=== PATIENT | male | born 1945 | race Two or more races ===

== ENCOUNTER 2025-05-03 21:35 | Inpatient (IN) | payer MEDICARE, OTHER ==
[~2025-05-03] VITALS: Ht 170.2 cm; Wt 65.8 kg
[2025-05-03] MEDS ORDERED: KETOROLAC TROMETHAMINE 15 MG/ML VIAL ONE (23:18)
[2025-05-03] MEDS ORDERED: VANCOMYCIN 1 GM /D5W 250 ML PB IV ONE (23:18)
[2025-05-03] MEDS ORDERED: LORAZEPAM INJ 2 MG/ML VIAL ONE (23:19)
[2025-05-03] MEDS: LORAZEPAM INJ 2 MG/ML VIAL IV ONE (23:20)
[2025-05-03 23:30] LABS: PLATELET COUNT (AUTO) 195 K/uL (150-450); RED BLOOD CELL COUNT(AUTO) 4.91 MIL/uL (4.5-6.0); RED CELL DISTRIBUTION WIDTH 14.8 % (11.5-15.0); WHITE BLOOD COUNT (AUTO) 13.2 K/uL (4.3-11.0)
[2025-05-03] MEDS: IV NS 0.9% 500 ML BAG IV ONE (23:34)
[2025-05-03] MEDS: KETOROLAC TROMETHAMINE 15 MG/ML VIAL IV ONE (23:35)
[2025-05-03] MEDS: VANCOMYCIN 1 GM in IV D5W 250 ML IV ONE (23:35)
[2025-05-03 23:42] LABS: CALCIUM, SERUM 10.1 mg/dL (8.5-10.1); CREATININE 1.7 mg/dL (0.6-1.3); SODIUM SERUM 140.0 mmol/L (136-145); UREA NITROGEN, BLOOD 33.0 mg/dL (7-18)
[2025-05-03 23:45] LABS: LACTIC ACID 1.6 mmol/L (0.4-2.0)
[2025-05-03 23:45] LABS: APPEARANCE,URINE CLEAR (CLEAR); BLOOD, URINE 2+ Ery/uL (NEGATIVE); LEUKOCYTE ESTERASE ,URINE NEGATIVE (NEGATIVE); NITRITE, URINE NEGATIVE (NEGATIVE); UGLUCOSE NEGATIVE (NEGATIVE)
[2025-05-03 23:46] LABS: INR 1.0 (0.91-1.10)
[2025-05-03 23:49] LABS: ASPARTATE AMINOTRANSFERASE 21.0 U/L (15-37); TOTAL PROTEIN, SERUM 8.4 g/dL (6.4-8.2)
[2025-05-04 00:07] LABS: ADD URINE CULTURE YES; SQUAMOUS EPITHELIAL CELL,UR Few /HPF (None Seen)
[2025-05-04] MEDS ORDERED: ENOXAPARIN SODIUM 30 MG/0.3 ML DISP.SYRIN SQ SCH (01:30)
[2025-05-04] MEDS ORDERED: DEXTROSE 50%-WATER 50 ML DISP.SYRIN IV PRN (01:30)
[2025-05-04] MEDS ORDERED: Z GUARD REMEDY 4 OZ OINT TP PRN (01:30)
[2025-05-04] MEDS ORDERED: DOSING PER PHARMACY-VANCOMYCIN IV XX PRN (01:30)
[2025-05-04] MEDS ORDERED: ONDANSETRON HCL/PF 4 MG/2 ML VIAL IVP PRN (01:30)
[2025-05-04] MEDS ORDERED: PIPERACI/TAZO 3.375GM/D5W 50ML PB IV ONE (04:05)
[2025-05-04 04:06] VITALS: BP 136/71; TEMP 97.7; O2SAT 97
[2025-05-04] MEDS: PIPERACILLIN /TAZOBACTAM 3.375 G in IV D5W 50 ML IV ONE (05:44)
[2025-05-04] MEDS: ENOXAPARIN SODIUM 30 MG/0.3 ML DISP.SYRIN SQ SCH (07:04)
[2025-05-04] MEDS: BLOOD SUGAR DIAGNOSTIC 1 EACH STRIP IN SCH (07:22)
[2025-05-04] MEDS: INSULIN REGULAR, HUMAN 100 UNIT/ML 3 ML VIAL SQ PRN (07:22)
[2025-05-04 08:00] VITALS: BP 168/95; TEMP 98.4; O2SAT 94
[2025-05-04] MEDS: VANCOMYCIN 500 MG in IV D5W 100ml IV ONE (09:18)
[2025-05-04] MEDS: PANTOPRAZOLE 40 MG TABLET.DR PO SCH (09:19)
[2025-05-04] MEDS ORDERED: DONE5TAB7 PO (09:21)
[2025-05-04] MEDS ORDERED: MIRT7.5T10 PO (09:21)
[2025-05-04] MEDS: IV NS 0.9% 1,000 ML IV ONE (11:02)
[2025-05-04] MEDS: VANCOMYCIN 1 GM in IV D5W 250ml IV SCH (11:02)
[2025-05-04] MEDS ORDERED: PIPERACILLIN /TAZOBACTAM 3.375 G in IV D5W 50 ML IV SCH (12:00)
[2025-05-04] MEDS: ZOSYN IVPB 2.25 G in IV D5W 50ml IV SCH (12:56)
[2025-05-04] MEDS: ACETAMINOPHEN 325 MG TABLET PO PRN (12:57)
[2025-05-04 13:07] LABS: CALCIUM, SERUM 9.1 mg/dL (8.5-10.1); CREATININE 1.3 mg/dL (0.6-1.3); SODIUM SERUM 139.0 mmol/L (136-145); UREA NITROGEN, BLOOD 27.0 mg/dL (7-18)
[2025-05-04 13:24] LABS: PHOSPHORUS 2.9 mg/dL (2.5-4.9)
[2025-05-04 16:00] VITALS: BP 154/85; TEMP 97.9; O2SAT 92
[2025-05-04 18:32] LABS: CREATININE, URINE 80.2 MG/DL (30.0-125.0); URINE SODIUM, RANDOM 78.0 mmol/l (40-220); URINE TOTAL PROTEIN 19.1 mg/dL (0-11.9)
[2025-05-04 20:00] VITALS: BP 135/86; TEMP 98.4; O2SAT 96
[2025-05-04 20:39] VITALS: BP 135/86; TEMP 98.4; O2SAT 96
[2025-05-04] MEDS: LORAZEPAM 0.5 MG TABLET PO ONE (21:37)
[2025-05-04] MEDS: DONEPEZIL 5 MG TABLET PO SCH (21:37)
[2025-05-04] MEDS: MIRTAZAPINE 15 MG TABLET PO SCH (21:37)
[2025-05-05 08:00] VITALS: BP 140/85; TEMP 97.7; O2SAT 94
[2025-05-05 09:59] LABS: PLATELET COUNT (AUTO) 171 K/uL (150-450); RED BLOOD CELL COUNT(AUTO) 4.17 MIL/uL (4.5-6.0); RED CELL DISTRIBUTION WIDTH 14.0 % (11.5-15.0); WHITE BLOOD COUNT (AUTO) 8.2 K/uL (4.3-11.0)
[2025-05-05 10:15] LABS: CREATINE KINASE, TOTAL 245.0 U/L (39-308)
[2025-05-05 10:18] LABS: ASPARTATE AMINOTRANSFERASE 19.0 U/L (15-37); CALCIUM, SERUM 8.7 mg/dL (8.5-10.1); CREATININE 1.2 mg/dL (0.6-1.3); PHOSPHORUS 3.2 mg/dL (2.5-4.9); SODIUM SERUM 139.0 mmol/L (136-145); TOTAL PROTEIN, SERUM 6.4 g/dL (6.4-8.2); UREA NITROGEN, BLOOD 19.0 mg/dL (7-18)
[2025-05-05 10:38] LABS: APPEARANCE,URINE CLEAR (CLEAR); BLOOD, URINE TRACE-INTA Ery/uL (NEGATIVE); LEUKOCYTE ESTERASE ,URINE NEGATIVE (NEGATIVE); NITRITE, URINE NEGATIVE (NEGATIVE); UGLUCOSE NEGATIVE (NEGATIVE)
[2025-05-05 10:39] LABS: ADD URINE CULTURE NO; SQUAMOUS EPITHELIAL CELL,UR Rare /HPF (None Seen)
[2025-05-05 16:00] VITALS: BP 145/90; TEMP 98.4; O2SAT 95
[2025-05-05 20:00] VITALS: BP 130/116; TEMP 97.3; O2SAT 95
[2025-05-05 20:30] VITALS: BP 141/73; TEMP 98.1; O2SAT 98
[2025-05-06 08:22] LABS: CALCIUM, SERUM 9.5 mg/dL (8.5-10.1); CREATININE 1.4 mg/dL (0.6-1.3); SODIUM SERUM 144.0 mmol/L (136-145); UREA NITROGEN, BLOOD 25.0 mg/dL (7-18)
[2025-05-06 08:32] LABS: PLATELET COUNT (AUTO) 191 K/uL (150-450); RED BLOOD CELL COUNT(AUTO) 4.39 MIL/uL (4.5-6.0); RED CELL DISTRIBUTION WIDTH 14.6 % (11.5-15.0); WHITE BLOOD COUNT (AUTO) 7.4 K/uL (4.3-11.0)
[2025-05-06 20:55] VITALS: BP 132/73
[2025-05-07 07:07] LABS: PTH, INTACT 39 pg/mL (15-65)
[2025-05-07 12:07] LABS: PLATELET COUNT (AUTO) 212 K/uL (150-450); RED BLOOD CELL COUNT(AUTO) 4.23 MIL/uL (4.5-6.0); RED CELL DISTRIBUTION WIDTH 14.0 % (11.5-15.0); WHITE BLOOD COUNT (AUTO) 7.2 K/uL (4.3-11.0)
[2025-05-07 12:11] LABS: CALCIUM, SERUM 9.3 mg/dL (8.5-10.1); CREATININE 1.3 mg/dL (0.6-1.3); SODIUM SERUM 143.0 mmol/L (136-145); UREA NITROGEN, BLOOD 26.0 mg/dL (7-18)
[2025-05-18 07:08] LABS: *SPE A/G RATIO 0.9 (0.7-1.7); *SPE ALBUMIN 2.7 g/dL (2.9-4.4); *SPE ALPHA-1-GLOBULIN 0.3 g/dL (0.0-0.4); *SPE ALPHA-2-GLOBULIN 0.8 g/dL (0.4-1.0); *SPE BETA GLOBULIN 0.9 g/dL (0.7-1.3); *SPE GLOBULIN, TOTAL 3.0 g/dL (2.2-3.9); *SPE M-SPIKE Not Observed g/dL (Not Observed); *SPE PROTEIN TOTAL 5.7 g/dL (6.0-8.5); *SPEGAMMA GLOBULIN 1.0 g/dL (0.4-1.8)
== END 2025-05-07 13:30 | DRG 640 ==
LOC: ER 21:40 → MED 05-04 01:40
PROVIDERS: ADMIT Internal Medicine; ATTEND Internal Medicine
DX: E86.0 Dehydration (principal); G93.41 Metabolic encephalopathy; N17.0 Acute kidney failure with tubular necrosis; L03.114 Cellulitis of left upper limb; M25.532 Pain in left wrist; I12.9 Hypertensive chronic kidney disease with stage 1 through stage 4 chronic kidney disease, or unspecified chronic kidney disease; N18.9 Chronic kidney disease, unspecified; E11.22 Type 2 diabetes mellitus with diabetic chronic kidney disease; E83.89 Other disorders of mineral metabolism; F03.90 Unspecified dementia, unspecified severity, without behavioral disturbance, psychotic disturbance, mood disturbance, and anxiety
CPT/HCPCS: 36415; 71045-TC; 73100-TC; 76770-TC; 80048-TC; 80053-TC; 80076-TC; 81001; 82550-TC; 82570-TC; 82962-TC; 83605-TC; 83735-TC; 83970; 84100-TC; 84155; 84165; 84300-TC; 84550-TC; 85025-TC; 85730-TC; 87040-TC; 87081-TC; 87086-TC; 97112-TC; 97116-TC; 97530-TC; 97535-TC; A4223; G0378; J1650; J1815; J1885; J2060; J2543; J3373; J7030; J7040; J7060